=== PATIENT | female | born 1985 | race Asian ===

== ENCOUNTER 2024-12-09 17:38 | Emergency (ER) | payer OTHER ==
[~2024-12-09] VITALS: Ht 167.6 cm; Wt 61.2 kg
[2024-12-09] MEDS ORDERED: KETOROLAC TROMETHAMINE 15 MG/ML VIAL ONE (18:05)
[2024-12-09] MEDS ORDERED: ACETAMINOPHEN ES 500 MG TABLET ONE (18:05)
[2024-12-09] MEDS: ACETAMINOPHEN ES 500 MG TABLET PO ONE (18:23)
[2024-12-09] MEDS: KETOROLAC TROMETHAMINE 15 MG/ML VIAL IM ONE (18:23)
[2024-12-09] MEDS: PROPOFOL 200 MG/20 ML VIAL IV ONE (18:30)
[2024-12-09] MEDS ORDERED: PROPOFOL 20 ML IV ONE (18:52)
[2024-12-09 18:57] VITALS: TEMP 98
[2024-12-09] MEDS ORDERED: ONDA4TAB5 PO (21:17)
[2024-12-09] MEDS ORDERED: HYDR-3976 GT (21:17)
[2024-12-09 21:37] VITALS: BP 109/77; O2SAT 98
== END 2024-12-09 21:37 | disposition home or self-care (01) ==
LOC: ER 17:41
DX: S52.121A Displaced fracture of head of right radius, initial encounter for closed fracture (principal); S20.312A Abrasion of left front wall of thorax, initial encounter; V43.52XA Car driver injured in collision with other type car in traffic accident, initial encounter; Y93.89 Activity, other specified; Y92.488 Other paved roadways as the place of occurrence of the external cause; Y99.8 Other external cause status
CPT/HCPCS: 25605; 71045; 73090; 73110; 73130; 81025; 84703; 96372; 99152; 99285; J1885; J2704; G0500